=== PATIENT | female | born 1980 | race Caucasian/White ===

== ENCOUNTER → 2016-09-26 | Outpatient (CLI) | payer OTHER | END | disposition home or self-care (01) | LOC: YCFC.O 11:40 | PROVIDERS: ATTEND Nurse Practitioner Family | DX: R30.0 Dysuria (principal); Z11.3 Encounter for screening for infections with a predominantly sexual mode of transmission ==

== ENCOUNTER 2019-07-23 16:49 | Emergency (ER) | payer MEDICAID, OTHER ==
--- NOTE | 2019-07-23 17:19 | ED.PDOC ---
History of Present Illness - General Chief Complaint: Chest Pain/VA Stated Complaint: chest pain Time Seen by Provider: 07/23/19 17:17 Source: patient, RN notes reviewed, Vital Signs reviewed Exam Limitations: no limitations - History of Present Illness Initial Comments: Patient is a 38-year-old white female with a history of bipolar who presents with complaints of chest pain. Patient states the pain is been going on an hour. She has associated shortness of breath. No nausea or vomiting no diaphoresis. Timing/Duration: 1 hour Severity/Quality: moderate, aching Location: substernal Chest Pain Radiation: no radiation Activities at Onset: none Prior Chest Pain/Cardiac Workup: no prior chest pain, no prior cardiac workup Improving Factors: nothing Worsening Factors: nothing Nitro Today/Relief: no nitro taken today Aspirin Treatment Today: no aspirin today Associated Symptoms: shortness of breath Allergies/Adverse Reactions: Allergies NO KNOWN ALLERGY Allergy (Verified 07/23/19 17:26) Review of Systems - Review of Systems Constitutional: States: no symptoms reported, see HPI. Denies: chills, fever, malaise, weakness EENTM: States: no symptoms reported. Denies: eye pain, double vision Respiratory: States: see HPI, short of breath. Denies: cough Cardiology: States: see HPI, chest pain. Denies: palpitations, syncope Gastrointestinal/Abdominal: States: no symptoms reported. Denies: abdominal pain, diarrhea, nausea, vomiting Genitourinary: States: no symptoms reported Musculoskeletal: States: no symptoms reported. Denies: back pain, neck pain Skin: States: no symptoms reported. Denies: change in color, rash Neurological: States: no symptoms reported. Denies: numbness, tingling, weakness Endocrine: States: no symptoms reported Hematologic/Lymphatic: States: no symptoms reported All other Systems: Reviewed and Negative, No Change from Baseline Family Medical History - Family History Mother Family History: Unknown Physical Exam - Physical Exam General Appearance: Alert, Anxious, Obvious distress, Restless, Well Developed, Well Groomed, Well Hydrated, Well Nourished Eyes, Ears, Nose, Throat Exam: PERRL/EOMI, normal ENT inspection, pharynx normal Neck: non-tender, full range of motion, supple, normal inspection Respiratory: chest non-tender, lungs clear, normal breath sounds, no respiratory distress, no accessory muscle use Cardiovascular/Chest: normal peripheral pulses, regular rate, rhythm, no edema, no gallop, no JVD, no murmur Peripheral Pulses: radial,right: 2+, radial,left: 2+ Gastrointestinal/Abdominal: normal bowel sounds, non tender, soft Extremity: normal range of motion, non-tender, normal inspection, no pedal edema, no calf tenderness Neurologic: metal grader II-XII nml as tested, no motor/sensory deficits, alert, oriented x 3, other - Tearful, anxious. Skin Exam: normal color, warm/dry Lymphatic: no adenopathy Progress - Progress Progress: Differential diagnosis: Acute VA, anxiety, pneumonia, GERD among others. 07/23/19 19:09 Patient's labs are unremarkable. Chest x-ray is unremarkable. EKG shows some sinus tachycardia otherwise is normal EKG. Patient completely had her symptoms resolved after 1 mg of IV Ativan and she became calm and "crying. Plan on discharge home with follow-up with her PCP. I discussed this plan of care with her she voices understanding and agreement with the plan of care. Arnulfo Philippe M.D. #[id number] - Results/Orders Results/Orders: 07/23/19 17:17 Telemetry ONCE Sodium Chloride 0.9% (Flush) [Saline Flush Syringe] 3 ml IV PRN PRN 07/23/19 17:30 EKG STAT 07/24/19 09:00 Pulse Ox Daily Laboratory Results - last 24 hr 07/23/19 07/23/19 07/23/19 17:00 17:30 17:30 WBC 9.6 RBC 4.60 Hgb 14.3 Hct 41.3 MCV 89.8 MCH 31.0 MCHC 34.5 RDW 13.6 Plt Count 267 MPV 8.1 Absolute Neuts (auto) 7.10 H Absolute Lymphs (auto) 2.10 Absolute Monos (auto) 0.40 Absolute Eos (auto) 0.00 Absolute Basos (auto) 0.10 Neutrophils % 73.7 Lymphocytes % 22.0 Monocytes % 3.7 Eosinophils % 0.1 L Basophils % 0.5 PT 9.8 INR < 1.00 PTT (SP) 24.1 Sodium 140 Potassium 3.6 Chloride 109 Carbon Dioxide 20 L Anion Gap 14.6 BUN 6 L Creatinine 0.71 BUN/Creatinine Ratio 8.5 L Random Glucose 111 H Serum Osmolality 277.7 Calcium 9.2 Magnesium 2.1 Total Bilirubin 0.4 Direct Bilirubin 0.1 Indirect Bilirubin 0.3 AST 25 ALT 27 Alkaline Phosphatase 80 Creatine Kinase 66 CK-MB (CK-2) 0.8 CK-MB (CK-2) % Not Reportable Troponin I < 0.02 Serum Total Protein 7.0 Albumin 4.0 Urine Color Yellow Urine Appearance Clear Urine pH 7.0 Ur Specific Sutton 1.015 Urine Protein Negative Urine Glucose (UA) Negative Urine Ketones Negative Urine Blood Negative Urine Nitrite Negative Urine Bilirubin Negative Urine Urobilinogen 0.2 Ur Leukocyte Esterase Negative Urine RBC 0-1 Urine WBC 0 Ur Epithelial Cells 0-1 Amorphous Sediment 1+ Urine Bacteria 0 Urine Opiates Screen Negative Urine Barbiturates Negative Ur Phencyclidine Scrn Negative U Amphetamin/Meth Scrn Negative U Benzodiazepines Scrn Negative U Cocaine Metab Screen Negative U Cannabinoids Screen Negative EKG performed on 23 July 2019 at 1658 hrs.: Sinus tachycardia at 106 bpm, possible left atrial enlargement, no ST or T wave changes concerning for ischemia, borderline EKG. No previous EKG available for comparison. EXAM: XR Chest, 1 View CLINICAL HISTORY: The patient is 38 years old and is Female; chest pain TECHNIQUE: Single upright portable view of the chest. COMPARISON: No relevant prior studies available. FINDINGS: Lungs: Unremarkable. No consolidation. Pleural space: Unremarkable. No pneumothorax. Heart: Unremarkable. No cardiomegaly. Mediastinum: Unremarkable. Bones/joints: No acute fracture identified. Upper abdomen: No free air in the visualized upper abdomen. IMPRESSION: No acute cardiopulmonary process identified. Vital Signs 07/23/19 07/23/19 07/23/19 16:55 17:15 17:17 Temperature 98.8 F Pulse Rate [ 111 H left brachial] Respiratory 20 28 H Rate Blood Pressure 117/88 [right brachial ] O2 Sat by Pulse 97 99 Oximetry 07/23/19 07/23/19 17:30 18:30 Temperature Pulse Rate [ 91 H 89 left brachial] Respiratory 24 16 Rate Blood Pressure 119/89 121/90 [right brachial ] O2 Sat by Pulse 99 99 Oximetry Departure - Departure Clinical Impression: Panic attack as reaction to stress, Anxiety and depression Chest pain Qualifiers: Chest pain type: unspecified Qualified Code(s): R07.9 - Chest pain, unspecified Time of Disposition: 19:12 Disposition: Discharge to Home or Self Care Condition: Good Departure Forms: ED Discharge - Pt. Copy, Patient Portal Self Enrollment Instructions: DI for Chest Pain, Anxiety, Adult (DC) Activity: increase activity as tolerated Referrals: Bethanie Garza NP [Primary Care Provider] - 1-5 Days
--- NOTE | 2019-07-23 17:37 | RAD ---
EXAM: XR Chest, 1 View CLINICAL HISTORY: The patient is 38 years old and is Female; chest pain TECHNIQUE: Single upright portable view of the chest. COMPARISON: No relevant prior studies available. FINDINGS: Lungs: Unremarkable. No consolidation. Pleural space: Unremarkable. No pneumothorax. Heart: Unremarkable. No cardiomegaly. Mediastinum: Unremarkable. Bones/joints: No acute fracture identified. Upper abdomen: No free air in the visualized upper abdomen. IMPRESSION: No acute cardiopulmonary process identified. Electronically signed by: Yenni Echols MD 07/23/2019 5:36 PM CDT
[2019-07-23] MEDS: SODIUM CHLORIDE 0.9% (FLUSH) 10 ML SYG IV PRN (17:47)
[2019-07-23] MEDS: ACETAMINOPHEN 500 MG TAB PO ONE (19:13)
[2019-07-23 19:32] VITALS: O2SAT 98
[2019-07-23 19:33] VITALS: BP 117/78; TEMP 98.4
== END 2019-07-23 19:36 | disposition home or self-care (01) ==
LOC: ER 16:49
DX: F43.0 Acute stress reaction (principal); R07.9 Chest pain, unspecified; F41.8 Other specified anxiety disorders; R00.0 Tachycardia, unspecified
CPT/HCPCS: 36415; 71045; 80048; 80076; 80307; 81001; 82550; 82553; 84484; 85025; 85610; 85730; 93005; 94760; A4216; J2060